=== PATIENT | male | born 1990 | race Two or more races ===

== ENCOUNTER 2025-01-09 13:52 | Emergency (ER) | payer OTHER ==
[~2025-01-09] VITALS: Ht 175.3 cm; Wt 170.6 kg
[2025-01-09] MEDS ORDERED: ACET-1304 PO (14:55)
[2025-01-09] MEDS ORDERED: IBUP-1456 PO (14:55)
--- NOTE | 2025-01-09 14:55 | ED.PDOC ---
Musculoskeletal HPI Comments 34-year-old male brought in by self, referred by occupational health care provider for evaluation of bilateral knee and left hand pain status post mechanical fall. Patient states he was carrying food trays while walking up concrete and metal stairs when he slipped, fell and landed on both knees and his left palm. He states he was able to stand and ambulate after the fall. He denies any other injury. He states he was seen by the occupational health provider at his work, who provided an Luis Felipe wrap because his right knee appeared swollen and bruised. He denies any numbness, weakness or limited range of motion. Chief Complaint: Fall Injury Time Seen by MD: 14:10 Reviewed Notes: Nurses Notes Home Meds Active Scripts Acetaminophen (Tylenol Extra Strength) 500 Mg Tab, 1000 MG PO Q6HP PRN, #30 TAB Prn pain Prov:MUMTAZ BARAJAS MD 01/09/25 Ibuprofen (Ibuprofen) 800 Mg Tab, 1 TAB PO Q8HP PRN, #30 TAB 1 Refill Prn pain. Take with food. Prov:MUMTAZ BARAJAS MD 01/09/25 Information Source: Patient Mode of Arrival: Ambulatory Past Medical History Past Medical History (Other): Morbid obesity Surgical History: Denies all surgeries Family History Family History: Reviewed,noncontributory to illness Social History Smoker: Non-Smoker Alcohol: Denies ETOH Use Drugs: Denies Drug Use Lives In: Home All Other Systems: Reviewed and Negative (Comprehensive systems review obtained and negative except for what is stated in the HPI.) Physical Exam General Appearance: No Apparent Distress, Obese HEENT: Other (Pupils and face symmetric. Moist mucous membranes.) Neck: Full Range of Motion, Non-Tender, Normal Inspection, Supple Respiratory: Lungs Clear, No Accessory Muscle Use, No Respiratory Distress, Normal Breath Sounds Cardiovascular: No JVD, Regular Rate/Rhythm Breast Exam: Deferred Gastrointestinal: Non Tender, Soft Genitalia: Deferred Pelvic: Deferred Rectal: Deferred Extremities: Normal range of motion, No pedal edema, Other (Right greater than left infrapatellar knee soft tissue tenderness and soft tissue swelling. No bruising, crepitus or deformity. Anterior/posterior drawer tests negative. No varus/valgus instability. Left hand thenar soft tissue tenderness, swelling and mild bruising.) Neurologic: Alert (Oriented x4), Normal Affect, Normal Mood, Other (Ambulatory) Cerebellar Function: NOT DONE Reflexes: NOT DONE Skin: Dry, Normal Color, Warm Lymphatic: NOT DONE Was a procedure done? Was a procedure done?: No Differential Diagnosis EXT Differential Diagnosis: Fracture, Sprain, Dislocation, Contusion, Strain, Other (Other soft tissue injury (ligamentous, cartilaginous) , among others) X-Ray, Labs, Meds, VS Vital Signs Date Time Temp Pulse Resp B/P (MAP) Pulse Ox O2 Delivery O2 Flow Rate FiO2 01/09/25 16:38 98.9 81 18 158/96 (116) 98 98.9 01/09/25 16:38 81 18 98 Room Air 01/09/25 14:09 97.9 107 16 156/99 (118) 94 97.9 Current Medications Medications (Trade) Dose Ordered Sig/Leland Route Start Time Stop Time Status Last Admin Ketorolac Tromethamine (Toradol Injection) 60 mg ONCE ONCE IM 01/09/25 14:45 01/09/25 14:46 DC 01/09/25 14:59 PROCEDURE(s): LKNE3 - L KNEE 3V XRAY REASON: trauma ORDER NUMBER(s): [id number], ACCESSION NUMBER(s): [id number] EXAM: XY L KNEE 3V XRAY HISTORY: trauma COMPARISON: None TECHNIQUE: 3 views of the left knee were performed. FINDINGS: No acute fracture is identified about the left knee. No significant joint space narrowing. No evidence of significant joint effusion. IMPRESSION: Unremarkable radiographs of the left knee. EDURE(s): RKN3 - R KNEE 3V XRAY REASON: trauma ORDER NUMBER(s): [id number], ACCESSION NUMBER(s): [id number] EXAM: XY R KNEE 3V XRAY HISTORY: trauma COMPARISON: None TECHNIQUE: 3 views of the right knee were performed. FINDINGS: No acute fracture is identified about the right knee. No significant joint space narrowing. No evidence of significant joint effusion. IMPRESSION: Unremarkable radiographs of the right knee. EDURE(s): LHAN - L HAND 3V XRAY REASON: trauma ORDER NUMBER(s): [id number], ACCESSION NUMBER(s): [id number] CLINICAL INDICATION: trauma TECHNIQUE: 3 views of the left hand were performed. XY L HAND 3V XRAY Comparison: None FINDINGS/IMPRESSION: : No acute fracture or dislocation of the left hand. X-Ray, Labs, Meds, VS Comment 34-year-old male with a history of morbid obesity complaining of bilateral knee and left hand pain status post mechanical fall Vitals remarkable for heart rate 107, BP 150/99, oxygen saturation 94% on room air Exam remarkable for right greater than left knee infrapatellar soft tissue swelling, tenderness. Left hand thenar soft tissue tenderness, swelling and bruising. Rhythm strip independently interpreted by me: Sinus tach, rate 107, no ectopy. Left hand, right and left knee x-rays unremarkable for any fracture or dislocation Patient treated with the following in the ED: Toradol 60 mg IM with improvement of his pain. On re-evaluation, patient was ambulatory and in no distress. Patient appears stable for discharge with close outpatient follow-up with his primary doctor or occupational health care provider. Rx ibuprofen, Tylenol Time of 1ST Reevaluation: 15:00 Reevaluation 1ST: Improved Patient Education/Counseling: Diagnosis, Treatment, Need For Follow Up Family Education/Counseling: No Family Present Departure 1 Departure Time of Disposition: 15:00 Impression: Primary Impression: Contusion of knee, left Qualified Codes: S80.02XA - Contusion of left knee, initial encounter Additional Impressions: Contusion of knee, right Qualified Codes: S80.01XA - Contusion of right knee, initial encounter Hand contusion Qualified Codes: S60.222A - Contusion of left hand, initial encounter Disposition: HOME / SELF CARE / HOMELESS Condition: Stable Additional Instructions: Your x-rays did not show any broken bones or evidence of acute serious injury. I have prescribed pain medication to take as needed. Follow-up with your primary doctor or occupational health care provider in 1-2 days. e-Prescriptions Acetaminophen (Tylenol Extra Strength) 500 Mg Tab 1000 MG PO Q6HP PRN, #30 TAB Prn pain Prov: MUMTAZ BARAJAS MD 01/09/25 Ibuprofen (Ibuprofen) 800 Mg Tab 1 TAB PO Q8HP PRN, #30 TAB 1 Refill Prn pain. Take with food. Prov: MUMTAZ BARAJAS MD 01/09/25 Discharged With: Self Comments Off work 01/09/2025 through 01/11/2025. May return to light duty with no heavy lifting or extended standing. May return to full activity and cleared by primary physician or occupational health care provider. Critical Care Note Critical Care Time?: No Stability Stability form required: No Heart Score Heart Score: Heart Score Response (Comments) Value History N/A 0 EKG N/A 0 Age N/A 0 Risk Factors N/A 0 Troponin N/A 0 Total 0 I personally scribed for MUMTAZ BARAJAS MD ([email or web address]) on 01/09/25 at 16:20. Electronically submitted by Addy Fernandez ([email or web address]). MUMTAZ BARAJAS MD January 09, 2025 14:55
[2025-01-09] MEDS: KETOROLAC TROMETH 60MG/2ML VIAL IM ONE (14:59)
--- NOTE | 2025-01-09 15:48 | DVH ---
EXAM: XY R KNEE 3V XRAY HISTORY: trauma COMPARISON: None TECHNIQUE: 3 views of the right knee were performed. FINDINGS: No acute fracture is identified about the right knee. No significant joint space narrowing. No evid ence of significant joint effusion. IMPRESSION: Unremarkable radiographs of the right knee.
--- NOTE | 2025-01-09 15:48 | DVH ---
EXAM: XY L KNEE 3V XRAY HISTORY: trauma COMPARISON: None TECHNIQUE: 3 views of the left knee were performed. FINDINGS: No acute fracture is identified about the left knee. No significant joint space narrowing. No evide nce of significant joint effusion. IMPRESSION: Unremarkable radiographs of the left knee.
--- NOTE | 2025-01-09 15:50 | DVH ---
CLINICAL INDICATION: trauma TECHNIQUE: 3 views of the left hand were performed. XY L HAND 3V XRAY Comparison: None FINDINGS/IMPRESSION: : No acute fracture or dislocation of the left hand.
[2025-01-09 16:38] VITALS: BP 158/96; PULSE 81; RESP 18; TEMP 98.9; O2SAT 98
== END 2025-01-09 16:39 | disposition home or self-care (01) ==
LOC: ER 13:52
DX: S80.01XA Contusion of right knee, initial encounter (principal); S80.02XA Contusion of left knee, initial encounter; S60.222A Contusion of left hand, initial encounter; E66.01 Morbid (severe) obesity due to excess calories; Z79.899 Other long term (current) drug therapy; W01.0XXA Fall on same level from slipping, tripping and stumbling without subsequent striking against object, initial encounter; Y93.01 Activity, walking, marching and hiking; Y92.89 Other specified places as the place of occurrence of the external cause; Y99.8 Other external cause status
CPT/HCPCS: 73130; 73562; 96372; 99284; J1885